=== PATIENT | male | born 1980 | race Hispanic/Latino ===

== ENCOUNTER 2018-01-16 11:17 | Inpatient (IN) | payer SELFPAY ==
[2018-01-16] MEDS ORDERED: MECLIZINE HCL 12.5 MG TAB ONE (11:58)
[2018-01-16] MEDS ORDERED: NA CHLORIDE 0.9% 1,000 ML ONE (11:58)
[2018-01-16 12:19] LABS: Absolute Lymphocytes (CBC) 2.7 K/uL (0.7-4.9); Absolute Monocytes 1.2 K/uL (0.1-1.3); Absolute Neutrophil 11.3 K/uL (1.8-8.0); Basophils % 0.3 % (0-1.3); Eosinophils % 0.6 % (0-4.4); Hematocrit 39.6 % (39.6-49.0); Lymphocytes % 17.5 % (15.3-44.8); MCH 33.9 pg (27.0-35.0); MCV 96.5 fL (80-100); MPV 8.4 fL (7.6-11.3); Monocytes % 7.9 % (3.3-12.3)
[2018-01-16 12:34] LABS: Potassium 3.7 mmol/L (3.5-5.1)
[2018-01-16] MEDS ORDERED: NA CHLORIDE 0.9% 2,000 ML ONE (12:51)
--- NOTE | 2018-01-16 13:07 | ER ---
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 Transition of care: patient was not received from another setting of care. Onset of symptoms was January 16, 2018. Risk Assessment: Do you want to hurt yourself or someone else? Patient reports no desire to harm self or others. Initial Sepsis Screen: Does the patient meet any 2 criteria? No. Patient's initial sepsis screen is negative. Does the patient have a suspected source of infection? No. Patient's initial sepsis screen is negative. Care prior to arrival: Medication(s) given: Normal saline infusion, 500 mL, IV initiated. 20 GA, in the left antecubital area. 11:21 Method Of Arrival: EMS: [facility] 11:21 Acuity: KARUNA 3 Triage Assessment: 11:25 General: Appears in no apparent distress. uncomfortable, Behavior is calm, cooperative, hj appropriate for age. Pain: Denies pain. EENT: No signs and/or symptoms were reported regarding the EENT system. Neuro: Level of Consciousness is awake, alert, obeys commands, Oriented to person, place, time, situation, Appropriate for age. Cardiovascular: Capillary refill < 3 seconds Patient's skin is warm and dry. Respiratory: Airway is patent Respiratory effort is even, unlabored, Respiratory pattern is regular, symmetrical. GI: No signs and/or symptoms were reported involving the gastrointestinal system. : No signs and/or symptoms were reported regarding the genitourinary system. Derm: No signs and/or symptoms reported regarding the dermatologic system. Musculoskeletal: No signs and/or symptoms reported regarding the musculoskeletal system. Historical: - Allergies: 11:25 No Known Allergies; hj - Home Meds: 11:25 lisinopril 5 mg Oral tab 1 tab once daily [Active]; hj - PMHx: 11:25 Hypertension; hj - PSHx: 11:25 None; hj - Immunization history:: Adult Immunizations up to date. - Social history:: Smoking status: Patient/guardian denies using tobacco, Patient/guardian denies using alcohol. - Ebola Screening: : Patient negative for fever greater than or equal to 101.5 degrees Fahrenheit, and additional compatible Ebola Virus Disease symptoms Patient denies exposure to infectious person Patient denies travel to an Ebola-affected area in the 21 days before illness onset. Screenin:25 Abuse screen: Denies threats or abuse. Denies injuries from another. Nutritional hj screening: No deficits noted. Tuberculosis screening: No symptoms or risk factors identified. Fall Risk None identified. Assessment: 11:13 Reassessment: see triage for assessment;. hj 12:07 Reassessment: Patient and/or family updated on plan of care and expected duration. Pain hj level reassessed. Patient is alert, oriented x 3, equal unlabored respirations, skin warm/dry/pink. awaiting results and POC; Patient states feeling better. 13:46 Reassessment: Patient and/or family updated on plan of care and expected duration. Pain hj level reassessed. Patient is alert, oriented x 3, equal unlabored respirations, skin warm/dry/pink. for admit; awaiting room;. 14:01 Reassessment: able tp urinate 500 ml;. hj 14:40 Reassessment: Na Bicarb started per ED provider; for ICU admit;. hj Vital Signs: 11:26 BP 111 / 67; Pulse 106; Resp 18; Temp 98.1(O); Pulse Ox 95% on R/A; Weight 90.72 kg; hj Height 5 ft. 8 in. (172.72 cm); Pain 0/10; 12:00 BP 116 / 71; Pulse 79; Resp 18; Pulse Ox 100% on R/A; hj 13:15 BP 118 / 76; Pulse 98; Resp 18; Pulse Ox 100% on R/A; hj 14:42 BP 133 / 77; Pulse 101; Resp 18; Pulse Ox 100% on R/A; hj 15:22 BP 117 / 25; Pulse 98; Resp 18; Pulse Ox 100% on R/A; hj 15:31 BP 107 / 68; Pulse 78; Resp 16; Pulse Ox 99% on R/A; em 11:26 Body Mass Index 30.41 (90.72 kg, 172.72 cm) hj ED Course: 11:15 Maintain EMS IV. Dressing intact. Good blood return noted. Site clean \T\ dry. Gauge \T\ hj site: 20 g L AC;. 11:20 Patient arrived in ED. hj 11:24 Triage completed. hj 11:26 Arm band placed on right wrist. hj 11:26 Patient has correct armband on for positive identification. Placed in gown. Bed in low hj position. Call light in reach. Side rails up X 1. 11:29 Carter West PA is PHCP. jr8 11:29 Zafar Moise MD is Attending Physician. jr8 11:46 Adams Bai RN is Primary Nurse. hj 11:51 Initial lab(s) drawn, by me, sent to lab. dh3 13:07 Beth Wright MD is Hospitalizing Provider. jr8 13:23 Massiel Cunha MD is Hospitalizing Provider. jr8 16:24 No provider procedures requiring assistance completed. Patient admitted, IV remains in em place. Administered Medications: 11:43 Drug: NS 0.9% 1000 ml Route: IV; Rate: 1000 ml; Site: left antecubital; hj 13:48 Follow up: IV Status: Completed infusion hj 11:43 Drug: Meclizine 25 mg Route: PO; hj 12:26 Follow up: Response: No adverse reaction hj 12:47 Drug: NS 0.9% 1000 ml Route: IV; Rate: 1000 ml; Site: left antecubital; hj 13:48 Follow up: IV Status: Completed infusion hj 12:47 Drug: NS 0.9% 1000 ml Route: IV; Rate: 1000 ml; Site: left antecubital; hj 13:48 Follow up: IV Status: Completed infusion Point of Care Testing: Blood Glucose: 11:29 Blood Glucose: 124 mg/dL; dh3 Ranges: Outcome: 13:07 Decision to Hospitalize by Provider. jr8 16:24 Admitted to ICU accompanied by nurse, via stretcher, on monitor, Report called to kimberly Philippe RN 16:24 Condition: good 16:24 Instructed on the need for admit, Demonstrated understanding of instructions. 16:27 Patient left the ED. aa5 Signatures: Jony Mauricio, CHILLER TENDER CHILLER TENDER Kellie Leonard, SIXTO RN aa5 Carter West PA PA jr8 Adams Bai RN RN Leonarda Aguirre 3
--- NOTE | 2018-01-16 13:07 | EDPHYS ---
Physician Documentation [facility] Name: Alek Del Rio Age: 37 yrs Sex: Male : 1980 Arrival Date: 01/16/2018 Time: 11:20 Bed 20 Private MD: ED Physician Zafar Moise HPI: 01/16 14:11 This 37 yrs old Male presents to ER via EMS with complaints of Weakness, jr8 Dizziness. 14:11 Patient stated that he has been working in the heat a lot lately. About 3 days ago jr8 started to feel generally weak and dizzy. Stated that it feels worse. Has history of Rhabdo in past . Severity of symptoms: At their worst the symptoms were moderate in the emergency department the symptoms are unchanged. The patient has experienced a previous episode. The patient has not recently seen a physician. Historical: - Allergies: 11:25 No Known Allergies; hj - Home Meds: 11:25 lisinopril 5 mg Oral tab 1 tab once daily [Active]; hj - PMHx: 11:25 Hypertension; hj - PSHx: 11:25 None; hj - Immunization history:: Adult Immunizations up to date. - Social history:: Smoking status: Patient/guardian denies using tobacco, Patient/guardian denies using alcohol. - Ebola Screening: : Patient negative for fever greater than or equal to 101.5 degrees Fahrenheit, and additional compatible Ebola Virus Disease symptoms Patient denies exposure to infectious person Patient denies travel to an Ebola-affected area in the 21 days before illness onset. ROS: 14:11 Eyes: Negative for injury, pain, redness, and discharge, ENT: Negative for injury, jr8 pain, and discharge, Neck: Negative for injury, pain, and swelling, Cardiovascular: Negative for chest pain, palpitations, and edema, Respiratory: Negative for shortness of breath, cough, wheezing, and pleuritic chest pain, Abdomen/GI: Negative for abdominal pain, nausea, vomiting, diarrhea, and constipation, Back: Negative for injury and pain, MS/Extremity: Negative for injury and deformity, Skin: Negative for injury, rash, and discoloration. 14:11 Neuro: Positive for dizziness, weakness, Negative for altered mental status, gait disturbance, headache, hearing loss, loss of consciousness, numbness, seizure activity, speech changes, syncope, near syncope, tingling, tinnitus, tremor, visual changes. Exam: 14:11 Eyes: Pupils equal round and reactive to light, extra-ocular motions intact. Lids and jr8 lashes normal. Conjunctiva and sclera are non-icteric and not injected. Cornea within normal limits. Periorbital areas with no swelling, redness, or edema. ENT: Nares patent. No nasal discharge, no septal abnormalities noted. Tympanic membranes are normal and external auditory canals are clear. Oropharynx with no redness, swelling, or masses, exudates, or evidence of obstruction, uvula midline. Mucous membranes moist. Neck: Trachea midline, no thyromegaly or masses palpated, and no cervical lymphadenopathy. Supple, full range of motion without nuchal rigidity, or vertebral point tenderness. No Meningismus. Cardiovascular: Regular rate and rhythm with a normal S1 and S2. No gallops, murmurs, or rubs. Normal PMI, no JVD. No pulse deficits. Respiratory: Lungs have equal breath sounds bilaterally, clear to auscultation and percussion. No rales, rhonchi or wheezes noted. No increased work of breathing, no retractions or nasal flaring. Abdomen/GI: Soft, non-tender, with normal bowel sounds. No distension or tympany. No guarding or rebound. No evidence of tenderness throughout. Back: No spinal tenderness. No costovertebral tenderness. Full range of motion. Skin: Warm, dry with normal turgor. Normal color with no rashes, no lesions, and no evidence of cellulitis. MS/ Extremity: Pulses equal, no cyanosis. Neurovascular intact. Full, normal range of motion. Neuro: Awake and alert, GCS 15, oriented to person, place, time, and situation. Cranial nerves II-XII grossly intact. Motor strength 5/5 in all extremities. Sensory grossly intact. Cerebellar exam normal. Normal gait. Vital Signs: 11:26 BP 111 / 67; Pulse 106; Resp 18; Temp 98.1(O); Pulse Ox 95% on R/A; Weight 90.72 kg; hj Height 5 ft. 8 in. (172.72 cm); Pain 0/10; 12:00 BP 116 / 71; Pulse 79; Resp 18; Pulse Ox 100% on R/A; hj 13:15 BP 118 / 76; Pulse 98; Resp 18; Pulse Ox 100% on R/A; hj 14:42 BP 133 / 77; Pulse 101; Resp 18; Pulse Ox 100% on R/A; hj 15:22 BP 117 / 25; Pulse 98; Resp 18; Pulse Ox 100% on R/A; hj 15:31 BP 107 / 68; Pulse 78; Resp 16; Pulse Ox 99% on R/A; em 11:26 Body Mass Index 30.41 (90.72 kg, 172.72 cm) MDM: 11:29 Patient medically screened. [facility] 13:06 Data reviewed: vital signs, nurses notes, lab test result(s), and as a result, I will [facility] admit patient. Data interpreted: Pulse oximetry: on room air is 95 %. Interpretation: normal. Counseling: I had a detailed discussion with the patient and/or guardian regarding: the historical points, exam findings, and any diagnostic results supporting the discharge/admit diagnosis, lab results, the need for further work-up and treatment in the hospital. 01/16 11:43 Order name: CBC with Diff [facility] 01/16 11:43 Order name: Basic Metabolic Panel [facility] 01/16 11:43 Order name: CPK [facility] 01/16 11:43 Order name: CBC with Automated Diff; Complete Time: 12:46 [facility] 01/16 11:43 Order name: Basic Metabolic Panel; Complete Time: 12:46 [facility] 01/16 11:43 Order name: Creatine Phosphokinase; Complete Time: 12:46 [facility] 01/16 11:43 Order name: IV; Complete Time: 11:46 [facility] 01/16 12:26 Order name: Diet Regular; Complete Time: 12:26 01/16 13:58 Order name: Urine Dipstick--Ancillary (enter results); Complete Time: 14:30 la 01/16 15:54 Order name: Urine Microscopic Only 01/16 15:54 Order name: Urine Dipstick-Ancillary (obtain specimen); Complete Time: 15:54 Administered Medications: 11:43 Drug: NS 0.9% 1000 ml Route: IV; Rate: 1000 ml; Site: left antecubital; 13:48 Follow up: IV Status: Completed infusion 11:43 Drug: Meclizine 25 mg Route: PO; 12:26 Follow up: Response: No adverse reaction hj 12:47 Drug: NS 0.9% 1000 ml Route: IV; Rate: 1000 ml; Site: left antecubital; hj 13:48 Follow up: IV Status: Completed infusion hj 12:47 Drug: NS 0.9% 1000 ml Route: IV; Rate: 1000 ml; Site: left antecubital; hj 13:48 Follow up: IV Status: Completed infusion hj Point of Care Testing: Blood Glucose: 11:29 Blood Glucose: 124 mg/dL; dh3 Ranges: Critical Glucose Levels:Adult <50 mg/dl or >400 mg/dl <40 mg/dl or >180 mg/dl Disposition: 17:30 Co-signature as Attending Physician, Zafar Moise MD I agree with the assessment and kdr plan of care. Disposition: 01/16/18 13:07 Hospitalization ordered by Massiel Cunha for Inpatient Admission. Preliminary diagnosis are Acute kidney failure, Rhabdomyolysis. - Bed requested for Intensive Care Unit. - Status is Inpatient Admission. aa5 - Condition is Stable. - Problem is new. - Symptoms are unchanged. UTI on Admission? No Signatures: Dispatcher [employer] EDMS Zafar Moise MD MD [facility] Kellie Quigley RN RN aa5 Carter West PA PA jr8 Adams Bai RN RN Alyssa Neff Corrections: (The following items were deleted from the chart) 13:24 13:07 Hospitalization Ordered by Beth Wright MD for Inpatient Admission. Preliminary jr8 diagnosis is Acute kidney failure; Rhabdomyolysis. Bed requested for Telemetry/MedSurg (Inpatient). Status is Inpatient Admission. Condition is Stable. Problem is new. Symptoms are unchanged. UTI on Admission? No. jr8 14:03 13:24 01/16/2018 13:07 Hospitalization Ordered by Massiel Cunha MD for Inpatient jr8 Admission. Preliminary diagnosis is Acute kidney failure; Rhabdomyolysis. Bed requested for Telemetry/MedSurg (Inpatient). Status is Inpatient Admission. Condition is Stable. Problem is new. Symptoms are unchanged. UTI on Admission? No. jr8 14:50 14:03 01/16/2018 13:07 Hospitalization Ordered by Massiel Cunha MD for Inpatient eb Admission. Preliminary diagnosis is Acute kidney failure; Rhabdomyolysis. Bed requested for Intensive Care Unit. Status is Inpatient Admission. Condition is Stable. Problem is new. Symptoms are unchanged. UTI on Admission? No. jr8 16:27 14:50 01/16/2018 13:07 Hospitalization Ordered by Massiel Cunha MD for Inpatient aa5 Admission. Preliminary diagnosis is Acute kidney failure; Rhabdomyolysis. Bed requested for Intensive Care Unit. Status is Inpatient Admission. Condition is Stable. Problem is new. Symptoms are unchanged. UTI on Admission? No. eb
[2018-01-16 14:18] LABS: Urine Blood TRACE (NEG); Urine Glucose NEGATIVE (NEG); Urine Protein 1+ (NEG); Urine Specific Gravity 1.025 (1.005-1.030); Urine pH 5.5 (5.0-7.0)
[2018-01-16] MEDS ORDERED: ONDANSETRON 4 MG/2 ML VIAL IV PRN (14:47)
[2018-01-16] MEDS ORDERED: ACETAMINOPHEN 500 MG TAB PO PRN (14:47)
[2018-01-16] MEDS ORDERED: NA CHLORIDE 0.9% 1,000 ML IV SCH (15:00)
[2018-01-16] MEDS ORDERED: D5W 1,000 ML with NA BICARB 8.4% 100 MEQ IV ONE ×2 (15:00)
[2018-01-16 16:52] LABS: Urine Bacteria <20 /HPF (NONE SEEN); Urine Culture Reflex Order NOT NEEDED; Urine RBC <5 /HPF (NONE SEEN)
[2018-01-16 16:56] LABS: Urine Amorphous Sediment 1+ /HPF (NONE SEEN); Urine Mucus 2+ /HPF (NONE SEEN)
--- NOTE | 2018-01-16 17:11 | P.HP ---
Certification for Inpatient Patient admitted to: Inpatient With expected LOS: >2 Midnights Patient will require the following post-hospital care: None Practitioner: I am a practitioner with admitting privileges, knowledge of patient current condition, hospital course, and medical plan of care. Services: Services provided to patient in accordance with Admission requirements found in Title 42 Section 412.3 of the Code of Federal Regulations Patient History Date of Service: 01/16/18 Primary Care Provider: None Reason for admission: Muscle pain and Dizziness History of Present Illness: This is a 29-year-old male with no significant past medical history who presented to the ED complaining of having some generalized weakness and dizziness. 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 Patient stated that he has had similar episodes in the past year where he was diagnosed with rhabdomyolysis and was admitted for IV fluids at that time at [facility]. Patient denied having any chest pain shortness of breath, nausea or vomiting however did state that the dry heaving did start this morning. No other complaints to offer at this time. In the ER patient was found to have acute rhabdomyolysis along with acute kidney injury and thus was admitted to the hospital for further care. Allergies No Known Allergies Allergy (Unverified 01/16/18 14:38) Home Medications: Hydrocodone Bit/Acetaminophen [Hydrocodon-Acetaminophn 10-325] 1 each PO Q6HR PRN 01/16/18 Lisinopril [Prinivil*] 20 mg PO DAILY 01/16/18 - Past Medical/Surgical History Has patient received pneumonia vaccine in the past: No Diabetic: No -: HTN -: None - Family History Mother -: Heart disease, Diabetes Father -: Cancer - Social History Smoking Status: Current every day smoker Alcohol use: No CD- Drugs: No Caffeine use: Yes Place of Residence: Home Review of Systems General: As per HPI Physical Examination - Vital Signs Temperature: 98.1 F Blood Pressure: 107/68 Pulse: 78 Respirations: 16 - Physical Exam General: Alert, In no apparent distress HEENT: Atraumatic, PERRLA, Mucous membr. moist/pink, EOMI, Sclerae nonicteric Neck: Supple, 2+ carotid pulse no bruit, No LAD, Without JVD or thyroid abnormality Respiratory: Clear to auscultation bilaterally, Normal air movement Cardiovascular: Regular rate/rhythm, Normal S1 S2 Gastrointestinal: Normal bowel sounds, No tenderness Musculoskeletal: No tenderness Integumentary: No rashes Neurological: Normal gait, Normal speech, Normal strength at 5/5 x4 extr, Normal tone, Normal affect Lymphatics: No axilla or inguinal lymphadenopathy - Studies Laboratory Data (last 24 hrs) 01/16/18 11:30: Sodium 139, Potassium 3.7, BUN 46 H, Creatinine 3.60 H, Glucose 140 H 01/16/18 11:30: WBC 15.3 H, Hgb 13.9, Hct 39.6, Plt Count 348 Assessment and Plan - Problems (Diagnosis) (1) Rhabdomyolysis Current Visit: Yes Status: Acute Plan: Rhabdomyolisis with CPK of > 500 -IV fluids -Avoid Nephrotoxic agent -electrolyte replacement -Cardiac Monitoring -Repeat lab in AM Qualifiers: Rhabdomyolysis type: non-traumatic Qualified Code(s): M62.82 - Rhabdomyolysis (2) DARON (acute kidney injury) Current Visit: Yes Status: Acute Plan: BUN/CR elevated Most likely 2.2 to Rhabdomyolsis -IV fluids -Bicarb 2AMP -Avoid nephrotoxic agent -F.U in AM (3) HTN (hypertension) Current Visit: Yes Status: Chronic Plan: Hold Lisinopril Qualifiers: Hypertension type: essential hypertension Qualified Code(s): I10 - Essential (primary) hypertension Discharge Plan: Home Plan to discharge in: 48 Hours - Advance Directives Does patient have a Living Will: No Does patient have a Durable POA for Healthcare: No - Code Status/Comfort Care Code Status Assessed: Yes Critical Care: Yes
[2018-01-16] MEDS: NA CHLORIDE 0.9% 1,000 ML IV SCH (19:42)
[2018-01-17] MEDS: NA CHLORIDE 0.9% 1,000 ML IV SCH ×4 (01:16→21:26)
[2018-01-17 04:32] LABS: Absolute Lymphocytes (CBC) 3.4 K/uL (0.7-4.9); Absolute Monocytes 0.9 K/uL (0.1-1.3); Absolute Neutrophil 6.5 K/uL (1.8-8.0); Basophils % 0.3 % (0-1.3); Eosinophils % 0.9 % (0-4.4); Hematocrit 33.4 % (39.6-49.0); Lymphocytes % 30.8 % (15.3-44.8); MCH 34.2 pg (27.0-35.0); MCV 97.2 fL (80-100); MPV 8.5 fL (7.6-11.3); Monocytes % 8.5 % (3.3-12.3); RBC Red Blood Cell Count 3.43 M/uL (4.33-5.43)
[2018-01-17 04:55] LABS: ALT/SGPT 52 U/L (12-78); AST/SGOT 65 U/L (15-37); Albumin 2.9 g/dL (3.4-5.0); Alkaline Phosphatase 53 U/L (45-117); BUN Blood Urea Nitrogen 17 mg/dL (7-18); Bicarbonate 27 mmol/L (21-32); Bilirubin Total 0.1 mg/dL (0.2-1.0); Glucose Level 111 mg/dL (74-106); Potassium 4.6 mmol/L (3.5-5.1); Protein, Total 5.9 g/dL (6.4-8.2); Sodium Level 145 mmol/L (136-145)
[2018-01-17 05:29] LABS: Creatine Phosphokinase 2847 U/L (39-308)
--- NOTE | 2018-01-17 10:29 | EKG ---
Test Date: 2018-01-16 Test Time: 16:01:09 [employer] Software Developer: LEONORA MEASUREMENT RESULTS: Intervals: Rate: 83 IN: 158 QRSD: 92 QT: 378 QTc: 444 [place]: P: 59 IN: 158 QRS: 56 T: 45 INTERPRETIVE STATEMENTS: Normal sinus rhythm Normal ECG No previous ECG available for comparison Electronically Signed On 01-17-18 10:27:22 CDT by Julián Betancourt
--- NOTE | 2018-01-17 11:10 | P.PN ---
Subjective Date of Service: 01/17/18 Primary Care Provider: None Chief Complaint: Muscle pain and Dizziness Subjective: No C/O voiced, Improving, Working w/ PT, Doing well Review of Systems General: As per HPI Physical Examination - Vital Signs Temperature: 97.9 F Blood Pressure: 109/61 Pulse: 80 Respirations: 16 Pulse Ox (%): 99 - Physical Exam General: Alert, In no apparent distress HEENT: Atraumatic, PERRLA, EOMI Neck: Supple, JVD not distended Respiratory: Clear to auscultation bilaterally, Normal air movement Cardiovascular: Regular rate/rhythm, Normal S1 S2 Gastrointestinal: Normal bowel sounds, No tenderness Musculoskeletal: No tenderness Integumentary: No rashes Neurological: Normal speech, Normal tone, Normal affect Lymphatics: No axilla or inguinal lymphadenopathy - Studies Laboratory Data (last 24 hrs) 01/16/18 11:30: Sodium 139, Potassium 3.7, BUN 46 H, Creatinine 3.60 H, Glucose 140 H 01/16/18 11:30: WBC 15.3 H, Hgb 13.9, Hct 39.6, Plt Count 348 Medications List Reviewed: Yes Assessment & Plan - Problems (Diagnosis) (1) Rhabdomyolysis Current Visit: Yes Status: Acute Plan: Rhabdomyolisis with CPK of > 5000. Now Down to 2000 -IV fluids -Avoid Nephrotoxic agent -electrolyte replacement -Cardiac Monitoring -Repeat lab in AM Qualifiers: Rhabdomyolysis type: non-traumatic Qualified Code(s): M62.82 - Rhabdomyolysis (2) DARON (acute kidney injury) Current Visit: Yes Status: Resolved Plan: BUN/CR elevated Most likely 2.2 to Rhabdomyolsis -BUN/CR WNL today. Doing well overall. -IV fluids -S/P Bicarb 2AMP -Avoid nephrotoxic agent -F.U in AM (3) HTN (hypertension) Current Visit: Yes Status: Chronic Plan: Hold Lisinopril Qualifiers: Hypertension type: essential hypertension Qualified Code(s): I10 - Essential (primary) hypertension Discharge Plan: Home Plan to discharge in: 48 Hours - Code Status/Comfort Care Code Status Assessed: Yes Critical Care: No
[2018-01-18 04:35] LABS: Absolute Lymphocytes (CBC) 3.7 K/uL (0.7-4.9); Absolute Monocytes 0.9 K/uL (0.1-1.3); Absolute Neutrophil 5.4 K/uL (1.8-8.0); Basophils % 0.5 % (0-1.3); Eosinophils % 1.2 % (0-4.4); Hematocrit 33.1 % (39.6-49.0); Lymphocytes % 36.4 % (15.3-44.8); MCH 34.2 pg (27.0-35.0); MCV 97.6 fL (80-100); MPV 8.5 fL (7.6-11.3); Monocytes % 8.8 % (3.3-12.3); RBC Red Blood Cell Count 3.39 M/uL (4.33-5.43)
[2018-01-18 05:21] LABS: ALT/SGPT 45 U/L (12-78); AST/SGOT 38 U/L (15-37); Albumin 2.9 g/dL (3.4-5.0); Alkaline Phosphatase 52 U/L (45-117); BUN Blood Urea Nitrogen 10 mg/dL (7-18); Bicarbonate 28 mmol/L (21-32); Bilirubin Total 0.2 mg/dL (0.2-1.0); Creatine Phosphokinase 1257 U/L (39-308); Glucose Level 110 mg/dL (74-106); Magnesium 1.8 mg/dL (1.8-2.4); Phosphorus 2.7 mg/dL (2.5-4.9); Potassium 4.3 mmol/L (3.5-5.1); Protein, Total 5.9 g/dL (6.4-8.2); Sodium Level 145 mmol/L (136-145)
[2018-01-18] MEDS ORDERED: MAGNESIUM SULFATE 1 gm IVPB 1 GM/100 ML BAG IV ONE (05:27)
[2018-01-18] MEDS ORDERED: Magnesium Sulfate 1gm IVPB 1 GM/50 ML BAG IV ONE (06:20)
[2018-01-18] MEDS: NA CHLORIDE 0.9% 1,000 ML IV SCH (08:00)
--- NOTE | 2018-01-18 12:28 | P.SSS ---
Patient History Date of Service: 01/18/18 Primary Care Provider: None Reason for admission: Muscle pain and Dizziness History of Present Illness: This is a 29-year-old male with no significant past medical history who presented to the ED complaining of having some generalized weakness and dizziness. 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 Patient stated that he has had similar episodes in the past year where he was diagnosed with rhabdomyolysis and was admitted for IV fluids at that time at [facility]. Patient denied having any chest pain shortness of breath, nausea or vomiting however did state that the dry heaving did start this morning. No other complaints to offer at this time. In the ER patient was found to have acute rhabdomyolysis along with acute kidney injury and thus was admitted to the hospital for further care. Allergies No Known Allergies Allergy (Unverified 01/16/18 14:38) Home Medications: Hydrocodone Bit/Acetaminophen [Hydrocodon-Acetaminophn 10-325] 1 each PO Q6HR PRN 01/16/18 Lisinopril [Prinivil*] 20 mg PO DAILY 01/16/18 - Past Medical/Surgical History Has patient received pneumonia vaccine in the past: No Diabetic: No -: HTN -: None - Family History Mother -: Heart disease, Diabetes Father -: Cancer - Social History Smoking Status: Current every day smoker Alcohol use: No CD- Drugs: No Caffeine use: Yes Place of Residence: Home Review of Systems General: As per HPI Physical Examination - Vital Signs Temperature: 98.2 F Blood Pressure: 114/61 Pulse: 70 Respirations: 18 Pulse Ox (%): 97 - Physical Exam General: Alert, In no apparent distress HEENT: Atraumatic, PERRLA, Mucous membr. moist/pink, EOMI, Sclerae nonicteric Neck: Supple, 2+ carotid pulse no bruit, No LAD, Without JVD or thyroid abnormality Respiratory: Clear to auscultation bilaterally, Normal air movement Cardiovascular: Regular rate/rhythm, Normal S1 S2 Gastrointestinal: Normal bowel sounds, No tenderness Musculoskeletal: No tenderness Integumentary: No rashes Neurological: Normal gait, Normal speech, Normal strength at 5/5 x4 extr, Normal tone, Normal affect Lymphatics: No axilla or inguinal lymphadenopathy - Diagnosis (Problem(s)) (1) Rhabdomyolysis Status: Resolved Plan: Resolved Today after IV fluids. Qualifiers: Rhabdomyolysis type: non-traumatic Qualified Code(s): M62.82 - Rhabdomyolysis (2) DARON (acute kidney injury) Status: Resolved Plan: Resolved after IV fluids and Bicarb 2 AMP (3) HTN (hypertension) Status: Chronic Qualifiers: Hypertension type: essential hypertension Qualified Code(s): I10 - Essential (primary) hypertension Treatment Summary: Overall patient Remained stable while in hospital Patient initially was admitted to the hospital for rhabdomyolysis and acute kidney injury. Patient was started on IV fluids and received 2 amps of bicarb in the ER. Patient had marked improvement in her symptoms and thus was discharged home under stable condition. His BUN and creatinine normalized and his CPK also was less than 1000. - Disposition Disposition: ROUTINE DISCHARGE Condition: GOOD Patient Discharge Instructions: Please f.u with PCP in 1 to 2 weeks post discharge. -You BS was 140 here in the hospital. You will need to get Hga1c done with PCP to check for diabetes. -You BP was elevated here and you have HTN. You need to follow a low na diet and excercise daily. -you were admitted for Rhabdomylosis and can return to work after 1 week. You will need to be hydrated and avoid heat to prevent any complication. No new medication. Hold your lisinopril for 7 days and resume after that. Diet: Regular Activity: Ad silverio
== END 2018-01-18 10:45 | disposition home or self-care (01) | DRG 683 ==
LOC: ER 11:17 → ERHOLD 13:38 → 3RD-ICU 15:56 → 2ND 01-17 11:25
PROVIDERS: ADMIT Family Medicine; ATTEND Family Medicine
DX: N17.9 Acute kidney failure, unspecified (principal); M62.82 Rhabdomyolysis; I10 Essential (primary) hypertension; F17.200 Nicotine dependence, unspecified, uncomplicated
CPT/HCPCS: 36415; 80048; 80053; 81003; 81015; 82550; 82962; 83735; 84100; 85025; 93005; 96360; 96361; 99285; J3475; J7030